=== PATIENT | male | born 1975 | race Hispanic/Latino ===

== ENCOUNTER 2020-10-11 13:02 | Emergency (ER) | payer OTHER ==
[2020-10-11 13:20] VITALS: BP 117/83
[2020-10-11] MEDS ORDERED: fentaNYL 100 MCG/2 ML INJ IV ONE (13:32)
[2020-10-11] MEDS ORDERED: DIPHtheria,PERTUSSIS(ACELL),TETANUS VACCINE/PF 0.5 ML VIAL IM ONE (13:32)
[2020-10-11] MEDS ORDERED: ONDANSETRON 4 MG/2 ML INJ IV ONE (13:32)
--- NOTE | 2020-10-11 13:41 | Emergency Department Report ---
HPI - General Chief Complaint: Laceration/Recheck/Suture Time Seen by Provider: 10/11/20 13:24 - HPI HPI: Room 45 The patient is a 45-year-old male present with a chief complaint of fingertip amputation. The patient states approximately 30 minutes prior to arrival while working he got his right ring finger closed in a heavy metal door. Patient states the pain was excruciating initially but is now mostly numb and he gives his pain score of 3/10. Patient states his last tetanus vaccination was over 7 years ago ED Past Medical Hx - Past Medical History Previous Medical History?: No - Surgical History Past Surgical History?: No - Family History Family history: no significant - Social History Smoking Status: Current Every Day Smoker (1/3 pack/day) Substance Use Type: None (Denies illicit drug use), Alcohol - Medications Home Medications: Home Medications Medication Instructions Recorded Confirmed Last Taken Type Ibuprofen [Motrin 800 MG tab] 800 mg PO Q8HR PRN #20 tablet 10/11/20 Unknown Rx cephALEXin [Keflex] 500 mg PO Q6HR #40 capsule 10/11/20 Unknown Rx oxyCODONE /ACETAMINOPHEN [Percocet 1 - 2 tab PO Q6HR PRN #14 tablet 10/11/20 Unknown Rx 5/325] ED Review of Systems ROS: Stated complaint: CUT RT RING FINGER Other details as noted in HPI Constitutional: no symptoms reported Eyes: denies: eye pain ENT: denies: throat pain Respiratory: no symptoms reported Cardiovascular: denies: chest pain Endocrine: no symptoms reported Gastrointestinal: denies: abdominal pain Genitourinary: denies: dysuria Musculoskeletal: arthralgia Skin: other (Finger laceration) Neurological: denies: headache Physical Exam - Physical Exam Vital Signs: Vital Signs 10/11/20 10/11/20 13:08 13:19 Temperature 98.2 F Pulse Rate 109 H 88 Respiratory 24 18 Rate Blood Pressure 127/86 Blood Pressure 117/83 [Left] O2 Sat by Pulse 97 97 Oximetry Physical Exam: GENERAL: The patient is well-developed well-nourished male sitting in chair in n o acute distress with right hand bandage. [] HEENT: Normocephalic. Atraumatic. Extraocular motions are intact. Patient has moist mucous membranes. NECK: Supple. Trachea midline CHEST/LUNGS: There is no respiratory distress noted. HEART/CARDIOVASCULAR: Regular. There is no tachycardia. 2+ right radial pulse SKIN: There is no rash. There is no edema. There is no diaphoresis. NEURO: The patient is awake, alert, and oriented. The patient is cooperative. The patient has no focal neurologic deficits. The patient has normal speech MUSCULOSKELETAL: There is ED Course Vital Signs 10/11/20 10/11/20 13:08 13:19 Temperature 98.2 F Pulse Rate 109 H 88 Respiratory 24 18 Rate Blood Pressure 127/86 Blood Pressure 117/83 [Left] O2 Sat by Pulse 97 97 Oximetry - Consultations Consultation #1: 10/11/20 15:20 Ortho paged 10/11/20 15:[address] Rhodes-patient may be discharged home and follow-up in the office for further management ED Medical Decision Making - Radiology Data Radiology results: report reviewed (Right ring finger x-ray), image reviewed (Right ring finger x-ray) interpreted by me: Right ring finger x-ray-soft tissue amputation distal tip of the ring finger. No foreign body seen [facility] [address] [place] [address] XRay Report Signed Patient: YOLY ALLEN MR#: [id number] : 1975 Acct:[id number] Age/Sex: 45 / M ADM Date: 10/11/20 Loc: ED Attending Dr: Ordering Physician: JUDITH SWENSON MD Date of Service: 10/11/20 Procedure(s): XR finger(s) 2+V RT Accession Number(s): [id number] cc: JUDITH SWENSON MD Fluoro Time In Minutes: XR finger(s) 2+V RT INDICATION: Ring finger caught in door/distal amputation. COMPARISON: None available. FINDINGS: There is a soft tissue amputation in the distal right ring finger with associated mildly displaced fracture of the tuft of the ring finger distal phalanx. There are no radiopaque foreign bodies. Signer Name: Luis Eduardo Ruggiero MD Signed: 10/11/2020 1:50 PM Workstation Name: [id number] Transcribed By: DOUG Dictated By: Luis Eduardo Ruggiero MD Electronically Authenticated By: Luis Eduardo Ruggiero MD Signed Date/Time: 10/11/20 1350 DD/ 1349 TD/TT: - Differential Diagnosis Tuft fracture, finger amputation Critical care attestation.: If time is entered above; I have spent that time in minutes in the direct care of this critically ill patient, excluding procedure time. ED Disposition Clinical Impression: Traumatic amputation of tip of right ring finger Disposition: DC- TO HOME OR SELFCARE Is pt being admited?: No Does the pt Need Aspirin: No Condition: Stable Instructions: Traumatic Finger Amputation Additional Instructions: Return to the emergency department should you develop worsening symptoms, inability to tolerate food or liquids, high fever or any other concerns Prescriptions: cephALEXin [Keflex] 500 mg PO Q6HR #40 capsule Ibuprofen [Motrin 800 MG tab] 800 mg PO Q8HR PRN #20 tablet PRN Reason: Pain, Moderate (4-6) oxyCODONE /ACETAMINOPHEN [Percocet 5/325] 1 - 2 tab PO Q6HR PRN #14 tablet PRN Reason: Pain Referrals: JEANETTE RHODES MD [Staff Physician] - [place] (Dr. Rhodes is an orthopedic surgeon. Please follow-up with him for further evaluation) Time of Disposition: 15:56
--- NOTE | 2020-10-11 13:55 | XRay Report ---
XR finger(s) 2+V RT INDICATION: Ring finger caught in door/distal amputation. COMPARISON: None available. FINDINGS: There is a soft tissue amputation in the distal right ring finger with associated mildly displaced fr acture of the tuft of the ring finger distal phalanx. There are no radiopaque foreign bodies. Signer Name: Luis Eduardo Ruggiero MD Signed: 10/11/2020 1:50 PM Workstation Name: [id number]
[2020-10-11] MEDS ORDERED: SODIUM CHLORIDE IRRI 500 ML 500 ML IR ONE (15:07)
[2020-10-11] MEDS ORDERED: SODIUM CHLORIDE 0.9% IRR 500 ML BOTTLE IR ONE (15:07)
[2020-10-11] MEDS: LIDOCAINE (1%) 10 MG/1 ML VIAL 20 ML MDV INFILTRATI ONE ×2 (15:28→15:32)
[2020-10-11] MEDS ORDERED: BUPIVACAINE/PF (0.5%) 5 MG/1 ML 10 ML VIAL INFILTRATI NR (16:00)
== END 2020-10-11 17:05 | disposition home or self-care (01) ==
LOC: ED 13:02
DX: S68.124A Partial traumatic metacarpophalangeal amputation of right ring finger, initial encounter (principal); F17.200 Nicotine dependence, unspecified, uncomplicated; Z79.1 Long term (current) use of non-steroidal anti-inflammatories (NSAID); Z79.899 Other long term (current) drug therapy; W31.89XA Contact with other specified machinery, initial encounter; Y93.89 Activity, other specified; Y92.89 Other specified places as the place of occurrence of the external cause; Y99.8 Other external cause status
CPT/HCPCS: 73140; 90471; 90715; 96365; 96375; 99283; J0690; J2405; J3010